=== PATIENT | female | born 1965 | race American Indian/Alaskan Native ===

== ENCOUNTER 2017-10-30 08:36 | Day surgery (SDC) | payer BC, OTHER ==
[~2017-10-30 08:36] MED LIST: Acetaminophen/HYDROcodone 325-5 MG Tab PO PRN; Clindamycin Phosphate in D5W 600 MG in Premix Bag 1 BAG IV SCH; Lactated Ringers 1,000 ML IV SCH
--- NOTE | 2017-10-30 09:29 | PCM.PREANE ---
Preanesthetic Assessment - Anesthesia/Transfusion/Family Hx Anesthesia History: Prior Anesthesia Without Reaction Family History of Anesthesia Reaction: No Transfusion History: No Prior Transfusion(s) - Review of Systems General: No Symptoms Pulmonary: No Symptoms Cardiovascular: No Symptoms Gastrointestinal: No Symptoms Neurological: No Symptoms Other: Reports: None - Physical Assessment NPO Status Date: 10/29/17 Height: 1.65 m Weight: 72.575 kg ASA Class: 2 Mental Status: Alert & Oriented x3 Airway Class: Mallampati = 1 Dentition: Reports: Partial ROM/Head Extension: Full Lungs: Clear to Auscultation, Normal Respiratory Effort Cardiovascular: Regular Rate, Regular Rhythm - Allergies Allergies/Adverse Reactions: Allergies Allergy/AdvReac Type Severity Reaction Status Date / Time cefuroxime axetil Allergy Hives Verified 10/24/17 14:59 [From Ceftin] codeine Allergy Airway Verified 10/24/17 14:59 Tightness Penicillins Allergy Hives Verified 10/24/17 14:59 propoxyphene [From Darvon] Allergy Hives Verified 10/24/17 14:59 - Anesthesia Plan Pre-Op Medication Ordered: None - Acknowledgements Anesthesia Type Planned: General Anesthesia Pt an Appropriate Candidate for the Planned Anesthesia: Yes Alternatives and Risks of Anesthesia Discussed w Pt/Guardian: Yes Pt/Guardian Understands and Agrees with Anesthesia Plan: Yes Additional Comments: PMH: RA. HTN, HLD, smoker PreAnesthesia Questionnaire - Past Health History Medical/Surgical History: Denies Medical/Surgical History (RA) HEENT History: Reports: Other (See Below) Other HEENT History: top and bottom denture Cardiovascular History: Reports: High Cholesterol, Hypertension Respiratory History: Reports: None Gastrointestinal History: Reports: Cholelithiasis, GERD Genitourinary History: Reports: None [employer] History: Reports: Musculoskeletal History: Reports: Fracture, Osteoarthritis, RA Other Musculoskeletal History: hx fx back Neurological History: Reports: None Psychiatric History: Reports: None Endocrine/Metabolic History: Reports: None Hematologic History: Reports: None Immunologic History: Reports: None Oncologic (Cancer) History: Reports: None Dermatologic History: Reports: None - Infectious Disease History Infectious Disease History: Reports: Chicken Pox - Past Surgical History Head Surgeries/Procedures: Reports: None HEENT Surgical History: Reports: Cataract Surgery, Tonsillectomy GI Surgical History: Reports: Cholecystectomy Female Surgical History: Reports: Tubal Ligation - SUBSTANCE USE Smoking Status *Q: Current Every Day Smoker Tobacco Use Within Last Twelve Months: Cigarettes Recreational Drug Use History: No - HOME MEDS Home Medications: Home Meds Aspirin [Halfprin] 81 mg PO DAILY 12/01/15 [History] Folic Acid 1 mg PO DAILY 12/01/15 [History] Methotrexate Sodium [Methotrexate] 2.5 mg PO ASDIRECTED 12/01/15 [History] Hydrochlorothiazide [Hydrochlorothiazide] 1 tab PO DAILY 03/17/16 [History] Cholecalciferol (Vitamin D3) [Vitamin D] 1,000 units PO DAILY 10/24/17 [History] Naproxen 1 tab PO ASDIRECTED PRN 10/24/17 [History] Simvastatin [Zocor] 20 mg PO DAILY 10/24/17 [History] - CURRENT (IN HOUSE) MEDS Current Meds: Current Medications Hydrocodone Bitart/Acetaminophen ([place] 325-5 Mg) 1 - 2 tab PO Q4H PRN PRN Reason: Pain Clindamycin Phosphate 600 mg/ (Premix) 50 mls @ 100 mls/hr IV ONCALL INA Lactated Ringer's (Ringers, Lactated) 1,000 mls @ 100 mls/hr IV ASDIRECTED [facility]
[2017-10-30] MEDS ORDERED: Lidocaine 2% 5 ML SDV ONE (09:44)
[2017-10-30] MEDS ORDERED: fentaNYL 100 MCG/2 ML SDV ONE (09:45)
[2017-10-30] MEDS ORDERED: Propofol 200 MG/20 ML SDV ONE (09:45)
[2017-10-30] MEDS ORDERED: Midazolam 1 MG/ML 2 ML SDV ONE ×2 (09:45→09:54)
[2017-10-30] MEDS ORDERED: Lidocaine 1% 20 ML MDV ONE (10:24)
[2017-10-30] MEDS ORDERED: fentaNYL 100 MCG/2 ML SDV IVPUSH PRN (11:29)
--- NOTE | 2017-10-30 11:30 | PCM.OPNOTE ---
- General Post-Op/Procedure Note Date of Surgery/Procedure: 10/30/17 Operative Procedure(s): L knee scope with chondroplasty lateral femoral condyle Post-Op Diagnosis: DJD left knee Anesthesia Technique: General LMA Primary Surgeon: Angely Batista Pack Out Operator: Latoya Cerrato in mLs: 10 Condition: Good Free Text/Narrative:: #[id number] tt=15 min
[2017-10-30] MEDS ORDERED: ePHEDrine 50 MG/ML SDV ONE (11:32)
[2017-10-30 13:07] VITALS: BP 110/62
--- NOTE | 2017-10-30 14:22 | PCM.POSTAN ---
POST ANESTHESIA ASSESSMENT - MENTAL STATUS Mental Status: Alert, Oriented - RESPIRATORY Respiratory Status: Respiratory Rate WNL, Airway Patent, O2 Saturation Stable - CARDIOVASCULAR CV Status: Pulse Rate WNL, Blood Pressure Stable - GASTROINTESTINAL GI Status: No Symptoms - PAIN Pain Score: 0 - POST OP HYDRATION Hydration Status: Adequate & Stable
--- NOTE | 2017-10-30 15:12 | PCM48HPAN ---
Post Anesthesia Note - EVALUATION WITHIN 48HRS OF ANESTHETIC Vital Signs in Normal Range: Yes Patient Participated in Evaluation: Yes Respiratory Function Stable: Yes Airway Patent: Yes Cardiovascular Function Stable: Yes Hydration Status Stable: Yes Pain Control Satisfactory: Yes Nausea and Vomiting Control Satisfactory: Yes Mental Status Recovered: Yes
--- NOTE | 2017-10-30 19:02 | OR ---
SURGEON: Angely Batista MD DATE OF PROCEDURE: 10/30/2017 PREOPERATIVE DIAGNOSIS: Right knee pain. POSTOPERATIVE DIAGNOSIS: Degenerative joint disease, right knee. PROCEDURES: Right knee arthroscopy with chondroplasty of the lateral femoral condyle. TOOL AND DIE REPAIRER: Latoya Cerrato PA-C. ANESTHESIA: General. ESTIMATED BLOOD LOSS: 10 mL. TOURNIQUET TIME: See operative record. COMPLICATIONS: None. IMPLANTS USED: None. DVT PROPHYLAXIS: Not indicated. BRIEF HISTORY: Priyanka is a 52-year-old female, who has had complaint of progressive right knee pain. She had failed conservative treatment. Due to her lack of response to conservative treatment, I did recommend surgical intervention. The risks and goals of procedure were discussed with the patient and were documented preoperatively. She agreed to proceed. DESCRIPTION OF PROCEDURE: The patient was properly identified and brought to the operating room. She was transferred from the OR cart and placed on the operating room table in supine position. General anesthesia was administered. After adequate anesthesia was obtained, a well-padded tourniquet was applied to the right lower extremity. The right lower extremity was then prepped in standard fashion using ChloraPrep solution. It was then sterilely draped. A time-out was performed to ensure correct site and procedure. Preoperative antibiotics were given. The surgical site had been marked preoperatively. An Esmarch was used to exsanguinate the right lower extremity and the tourniquet was inflated to 250 mmHg. A lateral portal arthrotomy was established. Blunt trocar and cannula were introduced into the suprapatellar space. Camera, inflow, and outflow were assembled. No significant synovitis was noted. The patellofemoral joint was visualized. The patella appeared to track centrally. I then extended down the lateral and medial gutter. No loose bodies were identified. I then entered the medial compartment. A medial portal arthrotomy was established. A blunt probe was inserted. The meniscus was extensively probed. I did not appreciate any evidence of instability or tearing. The joint surfaces also showed minimal degenerative changes consistent with grade 1 chondromalacia. I then entered the notch. Both the ACL and PCL were visualized and probed and found to be intact. I then entered the lateral compartment. An area of full thickness cartilage loss was noted along the medial aspect of the lateral femoral condyle. This was probed and found to be unstable. A shaver was used to resect this back to a stable remnant. She had an area measuring approximately 5 mm x 5 mm along the anterior medial aspect of the lateral tibial plateau that was completely devoid of overlying cartilage. The remainder of the cartilage surfaces appeared intact. Meniscus was also extensively probed and found to be stable. I then re-entered the patellofemoral joint. The undersurface of the patella was inspected. She had some stellate fissures within the inferior portion of the patella. A shaver was used to gently roughen this. There was still good overlying cartilage and this did not appear to be full-thickness. The trochlear groove did not show significant degenerative findings. Instruments were then removed from the knee. The portal sites were closed with 3-0 nylon. Lidocaine 1% was injected along the portal tracts. Xeroform gauze was placed over the wound and a bulky dressing was applied. The tourniquet was then deflated. She was awakened from her anesthetic and transferred back to the operating room cart. She was brought to recovery room in stable condition. All needle and sponge counts were correct. ILANA / ZEYNEP /[id number] MTDD
== END 2017-10-30 13:00 | disposition home or self-care (01) ==
LOC: MW.SDS 08:36
PROVIDERS: ATTEND Orthopaedic Surgery
DX: M17.11 Unilateral primary osteoarthritis, right knee (principal); M94.261 Chondromalacia, right knee; E78.00 Pure hypercholesterolemia, unspecified; I10 Essential (primary) hypertension; K21.9 Gastro-esophageal reflux disease without esophagitis; F17.210 Nicotine dependence, cigarettes, uncomplicated; Z88.1 Allergy status to other antibiotic agents; Z88.0 Allergy status to penicillin; Z88.8 Allergy status to other drugs, medicaments and biological substances; Z79.82 Long term (current) use of aspirin; Z79.899 Other long term (current) drug therapy; Z90.49 Acquired absence of other specified parts of digestive tract; Z98.51 Tubal ligation status; Z88.5 Allergy status to narcotic agent; Z90.89 Acquired absence of other organs
CPT/HCPCS: 29999; J2250; J3010; J7120; 01400; 88304; J2704

== ENCOUNTER 2019-01-07 07:16 | Day surgery (SDC) | payer BC, OTHER ==
[~2019-01-07 07:16] MED LIST changes: -Acetaminophen/HYDROcodone 325-5 MG Tab PO PRN; -Clindamycin Phosphate in D5W 600 MG in Premix Bag 1 BAG IV SCH
[2019-01-07] MEDS ORDERED: Lidocaine 1% 20 ML MDV ONE (07:38)
[2019-01-07] MEDS ORDERED: Propofol 200 MG/20 ML SDV ONE (07:42)
[2019-01-07] MEDS ORDERED: fentaNYL 100 MCG/2 ML SDV ONE (07:42)
[2019-01-07] MEDS ORDERED: Ondansetron 4 MG/2 ML SDV ONE (07:42)
[2019-01-07] MEDS ORDERED: Midazolam 1 MG/ML 2 ML SDV ONE (07:42)
[2019-01-07] MEDS ORDERED: Lidocaine 2% 5 ML SDV ONE (07:42)
--- NOTE | 2019-01-07 07:57 | PCM.PREANE ---
Preanesthetic Assessment - Anesthesia/Transfusion/Family Hx Anesthesia History: Prior Anesthesia Without Reaction Family History of Anesthesia Reaction: No Transfusion History: No Prior Transfusion(s) - Review of Systems General: No Symptoms Pulmonary: No Symptoms Cardiovascular: No Symptoms Gastrointestinal: No Symptoms Neurological: No Symptoms Other: Reports: None - Physical Assessment NPO Status Date: 01/06/19 Height: 5 ft 6 in Weight: 68.039 kg ASA Class: 2 Mental Status: Alert & Oriented x3 Airway Class: Mallampati = 2 Dentition: Reports: Normal Dentition ROM/Head Extension: Full Lungs: Clear to Auscultation, Normal Respiratory Effort Cardiovascular: Regular Rate, Regular Rhythm - Allergies Allergies/Adverse Reactions: Allergies Allergy/AdvReac Type Severity Reaction Status Date / Time cefuroxime axetil Allergy Hives Verified 01/02/19 15:57 [From Ceftin] codeine Allergy Airway Verified 01/02/19 15:57 Tightness Penicillins Allergy Hives Verified 01/02/19 15:57 pineapple Allergy Hives Verified 01/02/19 15:57 propoxyphene [From Darvon] Allergy Airway Verified 01/02/19 15:57 Tightness - Blood Blood Available: No - Anesthesia Plan Pre-Op Medication Ordered: None - Acknowledgements Anesthesia Type Planned: General Anesthesia Pt an Appropriate Candidate for the Planned Anesthesia: Yes Alternatives and Risks of Anesthesia Discussed w Pt/Guardian: Yes Pt/Guardian Understands and Agrees with Anesthesia Plan: Yes Additional Comments: PMH: htn, hld, smoker PLAN: ga/lma PreAnesthesia Questionnaire - Past Health History Medical/Surgical History: Denies Medical/Surgical History (RA) HEENT History: Reports: Cataract, Macular Degeneration, Other (See Below) Other HEENT History: uses reading glasses,, has upper and lower partial removable dentures Cardiovascular History: Reports: High Cholesterol, Hypertension Respiratory History: Reports: None Gastrointestinal History: Reports: Cholelithiasis, GERD Genitourinary History: Reports: 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: Musculoskeletal History: Reports: Fracture, Osteoarthritis, Osteoporosis Other Musculoskeletal History: hx of fx back and ribs Neurological History: Reports: None Psychiatric History: Reports: None Endocrine/Metabolic History: Reports: None Hematologic History: Reports: None Immunologic History: Reports: None Oncologic (Cancer) History: Reports: None Dermatologic History: Reports: None - Infectious Disease History Infectious Disease History: Reports: Chicken Pox - Past Surgical History HEENT Surgical History: Reports: Cataract Surgery, Tonsillectomy GI Surgical History: Reports: Cholecystectomy Female Surgical History: Reports: Tubal Ligation Musculoskeletal Surgical History: Reports: Arthroscopic Knee - SUBSTANCE USE Smoking Status *Q: Current Every Day Smoker Tobacco Use Within Last Twelve Months: Cigarettes Recreational Drug Use History: No - HOME MEDS Home Medications: Home Meds Aspirin [Halfprin] 81 mg PO DAILY 12/01/15 [History] Hydrochlorothiazide 1 tab PO DAILY 03/17/16 [History] Simvastatin [Zocor] 20 mg PO DAILY 10/24/17 [History] - CURRENT (IN HOUSE) MEDS Current Meds: Current Medications Hydrocodone Bitart/Acetaminophen ([place] 325-5 Mg) 1 - 2 tab PO Q4H PRN PRN Reason: Pain Clindamycin Phosphate 600 mg/ (Premix) 50 mls @ 100 mls/hr IV ONCALL INA Lactated Ringer's (Ringers, Lactated) 1,000 mls @ 100 mls/hr IV ASDIRECTED REPLACED BY [facility] Discontinued Medications Fentanyl (Sublimaze) Confirm Administered Dose 100 mcg .ROUTE .STK-MED ONE Stop: 01/07/19 07:43 Lidocaine HCl (Xylocaine-Mpf 1%) Confirm Administered Dose 5 mls @ as directed .ROUTE .STK-MED ONE Stop: 01/07/19 07:45 Lidocaine (Xylocaine-Mpf 2%) Confirm Administered Dose 5 ml .ROUTE .STK-MED ONE Stop: 01/07/19 07:43 Lidocaine HCl (Xylocaine 1%) Confirm Administered Dose 20 ml .ROUTE .STK-MED ONE Stop: 01/07/19 07:39 Midazolam HCl (Versed 1 Mg/Ml) Confirm Administered Dose 2 mg .ROUTE .STK-MED ONE Stop: 01/07/19 07:43 Ondansetron HCl (Zofran) Confirm Administered Dose 4 mg .ROUTE .STK-MED ONE Stop: 01/07/19 07:43 Propofol (Diprivan 20 Ml) Confirm Administered Dose 200 mg .ROUTE .STK-MED ONE Stop: 01/07/19 07:43
[2019-01-07] MEDS ORDERED: Acetaminophen/HYDROcodone 325-5 MG Tab PO PRN (08:00)
[2019-01-07] MEDS ORDERED: Clindamycin Phosphate in D5W 600 MG in Premix Bag 50 BAG IV SCH ×2 (08:00)
[2019-01-07] MEDS ORDERED: Ketorolac 30 MG/ML SDV ONE (11:20)
--- NOTE | 2019-01-07 11:30 | PCM.OPNOTE ---
- General Post-Op/Procedure Note Date of Surgery/Procedure: 01/07/19 Operative Procedure(s): Right knee arthroscopy with chondroplasty of the patella and lateral tibia plateau Post-Op Diagnosis: DJD right knee Anesthesia Technique: General LMA Primary Surgeon: Angely Batista Neon Sign Maker: Latoya Cerrato in mLs: 5 Condition: Good Free Text/Narrative:: tt=12 minutes #[id number]
[2019-01-07] MEDS ORDERED: 50% Dextrose in Water 50 ML Syringe IVPUSH PRN (11:45)
[2019-01-07] MEDS ORDERED: EPINEPHrine 1:10,000 1 MG/10 ML Syringe IVPUSH PRN (11:45)
[2019-01-07] MEDS ORDERED: Naloxone 0.4 MG/ML Syringe IVPUSH PRN (11:45)
[2019-01-07] MEDS ORDERED: fentaNYL 100 MCG/2 ML SDV IVPUSH PRN (11:45)
--- NOTE | 2019-01-07 12:37 | PCM.POSTAN ---
POST ANESTHESIA ASSESSMENT - MENTAL STATUS Mental Status: Alert, Oriented - RESPIRATORY Respiratory Status: Respiratory Rate WNL, Airway Patent, O2 Saturation Stable - CARDIOVASCULAR CV Status: Pulse Rate WNL, Blood Pressure Stable - GASTROINTESTINAL GI Status: No Symptoms - POST OP HYDRATION Hydration Status: Adequate & Stable
--- NOTE | 2019-01-07 12:37 | PCM48HPAN ---
Post Anesthesia Note - EVALUATION WITHIN 48HRS OF ANESTHETIC Vital Signs in Normal Range: Yes Patient Participated in Evaluation: Yes Respiratory Function Stable: Yes Airway Patent: Yes Cardiovascular Function Stable: Yes Hydration Status Stable: Yes Pain Control Satisfactory: Yes Nausea and Vomiting Control Satisfactory: Yes Mental Status Recovered: Yes Resp Rate: 16
[2019-01-07 13:46] VITALS: BP 116/63
--- NOTE | 2019-01-07 17:55 | OR ---
SURGEON: Angely Batista MD DATE OF PROCEDURE: 01/07/2019 PREOPERATIVE DIAGNOSIS: Right knee pain. POSTOPERATIVE DIAGNOSIS: Degenerative joint disease, right knee. PROCEDURE: Right knee arthroscopy with chondroplasty of the patella and lateral tibial plateau. DIAL PAINTER: Latoya Cerrato PA-C. ANESTHESIA: General. ESTIMATED BLOOD LOSS: 5 mL. TOURNIQUET TIME: 10 minutes. COMPLICATIONS: None. DVT PROPHYLAXIS: Not indicated. IMPLANTS USED: None. BRIEF HISTORY: Priyanka is a 53-year-old female who has had complaint of progressive right knee pain following a fall. She has previously undergone a knee arthroscopy and has done well. Due to her lack of response to conservative treatment, I did recommend surgical intervention. The risks and goals of procedure were discussed with the patient and were documented preoperatively. She agreed to proceed. DESCRIPTION OF PROCEDURE: The patient was properly identified and brought to the operating room. She was transferred from the OR cart and placed on the operating table in supine position. General anesthesia was administered. After adequate anesthesia was obtained, a well-padded tourniquet was applied to the right lower extremity. The right lower extremity was then prepped in standard fashion using ChloraPrep solution. It was then sterilely draped. A time-out was performed to ensure correct site and procedure. Preoperative antibiotics were given. The surgical site had been marked preoperatively. An Esmarch was used to exsanguinate the right lower extremity and the tourniquet was inflated to 250 mmHg. A lateral portal arthrotomy was made over the site of the previous incision. Blunt trocar and cannula were introduced into the suprapatellar pouch. Camera, inflow, and outflow were assembled. No significant synovitis was noted in the suprapatellar pouch. The patellofemoral joint was then visualized. The patella appeared to track centrally. I then extended down the lateral and medial gutter. No loose bodies were identified. I then entered the medial compartment. A medial portal arthrotomy was established to the site of the previous incision. A blunt probe was inserted. The meniscus was extensively probed. No tearing or instability was noted. The joint surface showed minor grade 1 chondromalacia only. I then entered the notch. Both the ACL and PCL were visualized and probed and found to be intact. I then entered the lateral compartment. The meniscus was extensively probed and found to be stable. She had an area measuring approximately 5 mm x 10 mm over the anterior aspect of the lateral tibial plateau that was completely devoid of cartilage. Some loose cartilage fragments remained. A shaver was used to perform a chondroplasty of the lateral tibial plateau. It was again probed and no further loose fragments were noted. The lateral femoral condyle showed evidence of grade 2 chondromalacia. I then re-entered the patellofemoral joint. The probe was used to examine the undersurface of the patella. She had deep fissures present within the cartilage on the patella. These appeared to be full thickness. She had a small area along the inferior portion of the patella, which did show some instability of the cartilage. I did use a shaver to roughen this area to hopefully stimulate some bleeding. There was no full-thickness cartilage loss noted. The trochlear groove showed minor grade 1 to grade 2 chondromalacia only. The instruments were then removed from the knee. The portal sites were closed with 3-0 nylon. 1% Lidocaine was injected along the portal tracts. Xeroform gauze was placed over the wound and a bulky dressing was applied. The tourniquet was then deflated. She was awakened from her anesthetic and transferred back to the operating room cart. She was brought to recovery room in stable condition. All needle and sponge counts were correct. ILANA / ZEYNEP /[id number]
== END 2019-01-07 13:00 | disposition home or self-care (01) ==
LOC: MW.SDS 07:16
PROVIDERS: ATTEND Orthopaedic Surgery
DX: M17.11 Unilateral primary osteoarthritis, right knee (principal); M94.261 Chondromalacia, right knee; M65.861 Other synovitis and tenosynovitis, right lower leg; I10 Essential (primary) hypertension; E78.00 Pure hypercholesterolemia, unspecified; M81.0 Age-related osteoporosis without current pathological fracture; F17.210 Nicotine dependence, cigarettes, uncomplicated; E78.5 Hyperlipidemia, unspecified; Z79.82 Long term (current) use of aspirin; Z79.899 Other long term (current) drug therapy
CPT/HCPCS: 29877; J1885; J2001; J2250; J2405; J2704; J3010; J3490; J7120

== ENCOUNTER 2019-04-22 12:09 | Emergency (ER) | payer BC, OTHER ==
[2019-04-22] MEDS ORDERED: Aspirin 81 MG Tab.Chew PO ONE (12:20)
[2019-04-22] MEDS ORDERED: Sodium Chloride 0.9% 1,000 ML IV ONE (12:20)
[2019-04-22] MEDS ORDERED: Ondansetron 4 MG/2 ML SDV IVPUSH ONE (12:21)
--- NOTE | 2019-04-22 12:22 | EDM.PDOC ---
ED HPI GENERAL MEDICAL PROBLEM - General Chief Complaint: Chest Pain Stated Complaint: CHEST PAIN Time Seen by Provider: 04/22/19 12:22 Source of Information: Reports: Patient - History of Present Illness INITIAL COMMENTS - FREE TEXT/NARRATIVE: HISTORY AND PHYSICAL: History of present illness: [Patient presents with epigastric pain which began at 2 AM after an episode of vomiting and regurgitation, she arrives in no distress no diaphoresis or shortness of breath no radiation arm neck or jaw with pain she does describe some tingling on arrival in her left hand no fever no current vomiting chills or sweats no actual chest pain headache dizziness or palpitation no bowel or urine symptoms I did provide GI cocktail which improved symptoms she had some decreased breath sounds on the right chest which cleared post DuoNeb Patient has history of acid reflux ] Review of systems: As per history of present illness and below otherwise all systems reviewed and negative. Past medical history: As per history of present illness and as reviewed below otherwise noncontributory. Surgical history: As per history of present illness and as reviewed below otherwise noncontributory. Social history: No reported history of drug or alcohol abuse. Family history: As per history of present illness and as reviewed below otherwise noncontributory. Physical exam: HEENT: Atraumatic, normocephalic, pupils reactive, negative for conjunctival pallor or scleral icterus, mucous membranes moist, throat clear, neck supple, nontender, trachea midline. Lungs: Clear to auscultation, breath sounds equal bilaterally, chest nontender. Heart: S1S2, regular, negative for clicks, rubs, or JVD. Abdomen: Soft, nondistended, nontender. Negative for masses or hepatosplenomegaly. Negative for costovertebral tenderness. Pelvis: Stable nontender. Genitourinary: Deferred. Rectal: Deferred. Extremities: Atraumatic, negative for cords or calf pain. Neurovascular unremarkable. Neuro: Awake, alert, oriented. Cranial nerves II through XII unremarkable. Cerebellum unremarkable. Motor and sensory unremarkable throughout. Exam nonfocal. Diagnostics: [CBC CMP UA troponin EKG Chest 1 view ] Therapeutics: [ GI cocktail and proton X improved symptoms DuoNeb Z-Sharif Prednisone HFA ] Impression: [ GERD-in terms resolved prior to discharge patient feeling much better and desires to leave we did offer observation admission Infiltrate on chest x-ray] Definitive disposition and diagnosis as appropriate pending reevaluation and review of above. left chest Pain Score (Numeric/FACES): 7 - Related Data Allergies Allergy/AdvReac Type Severity Reaction Status Date / Time cefuroxime axetil Allergy Hives Verified 04/22/19 12:17 [From Ceftin] codeine Allergy Airway Verified 04/22/19 12:17 Tightness Penicillins Allergy Hives Verified 04/22/19 12:17 pineapple Allergy Hives Verified 04/22/19 12:17 propoxyphene [From Darvon] Allergy Airway Verified 04/22/19 12:17 Tightness Home Meds: Home Meds Aspirin [Halfprin] 81 mg PO DAILY 12/01/15 [History] Hydrochlorothiazide 1 tab PO DAILY 03/17/16 [History] Metoprolol Succinate [Toprol XL] 1 tab PO DAILY 04/22/19 [History] Past Medical History - Past Health History Medical/Surgical History: Denies Medical/Surgical History HEENT History: Reports: Cataract, Macular Degeneration, Other (See Below) Other HEENT History: uses reading glasses,, has upper and lower partial removable dentures Cardiovascular History: Reports: High Cholesterol, Hypertension Respiratory History: Reports: None Gastrointestinal History: Reports: Cholelithiasis, GERD Genitourinary History: Reports: None 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: Musculoskeletal History: Reports: Fracture, Osteoarthritis, Osteoporosis Other Musculoskeletal History: hx of fx back and ribs Neurological History: Reports: None Psychiatric History: Reports: None Endocrine/Metabolic History: Reports: None Hematologic History: Reports: None Immunologic History: Reports: None Oncologic (Cancer) History: Reports: None Dermatologic History: Reports: None - Infectious Disease History Infectious Disease History: Reports: Chicken Pox - Past Surgical History Head Surgeries/Procedures: Reports: None HEENT Surgical History: Reports: Cataract Surgery, Tonsillectomy GI Surgical History: Reports: Cholecystectomy Female Surgical History: Reports: Tubal Ligation Musculoskeletal Surgical History: Reports: Arthroscopic Knee Social & Family History - Family History Family Medical History: Noncontributory HEENT: Reports: Other (See Below) - Tobacco Use Smoking Status *Q: Current Every Day Smoker Years of Tobacco use: 20 Packs/Tins Daily: 1 - Recreational Drug Use Recreational Drug Use: No ED ROS GENERAL - Review of Systems Review Of Systems: See Below ED EXAM, GENERAL - Physical Exam Exam: See Below Course - Vital Signs Last Recorded V/S: Last Vital Signs Temp 97.6 F 04/22/19 12:12 Pulse 83 04/22/19 13:35 Resp 16 04/22/19 13:35 BP 137/86 04/22/19 13:35 Pulse Ox 97 04/22/19 13:35 - Orders/Labs/Meds Orders: Active Orders 24 hr Category Date Time Status EKG Documentation Completion [RC] STAT Care 04/22/19 12:20 Active RT Aerosol Therapy [RC] ASDIRECTED Care 04/22/19 14:15 Active B-TYPE NATRIURETIC PEPTIDE,BNP [CHEM] Stat Lab 04/22/19 12:15 Received UA RFX TRAVIS AND CULT IF INDIC [URIN] Stat Lab 04/22/19 12:20 Ordered Labs: Laboratory Tests 04/22/19 04/22/19 Range/Units 12:15 12:15 WBC 13.57 H (4.0-11.0) K/uL RBC 5.27 (4.30-5.90) M/uL Hgb 15.1 (12.0-16.0) g/dL Hct 44.3 (36.0-46.0) % MCV 84.1 (80.0-98.0) fL MCH 28.7 (27.0-32.0) pg MCHC 34.1 (31.0-37.0) g/dL RDW Std Deviation 40.4 (28.0-62.0) fl RDW Coeff of Va 13 (11.0-15.0) % Plt Count 363 (150-400) K/uL MPV 10.30 (7.40-12.00) fL Neut % (Auto) 66.6 (48.0-80.0) % Lymph % (Auto) 23.9 (16.0-40.0) % Charles % (Auto) 6.3 (0.0-15.0) % Eos % (Auto) 3.1 (0.0-7.0) % Baso % (Auto) 0.1 (0.0-1.5) % Neut # (Auto) 9.0 H (1.4-5.7) K/uL Lymph # (Auto) 3.3 H (0.6-2.4) K/uL Charles # (Auto) 0.9 H (0.0-0.8) K/uL Eos # (Auto) 0.4 (0.0-0.7) K/uL Baso # (Auto) 0.0 (0.0-0.1) K/uL Nucleated RBC % 0.0 /100WBC Nucleated RBCs # 0 K/uL Sodium 139 (136-145) mmol/L Potassium 3.7 (3.5-5.1) mmol/L Chloride 105 (98-107) mmol/L Carbon Dioxide 23.5 (21.0-32.0) mmol/L BUN 14 (7.0-18.0) mg/dL Creatinine 0.7 (0.6-1.0) mg/dL Est Cr Clr Drug Dosing 86.01 mL/min Estimated GFR (MDRD) > 60.0 ml/min Glucose 102 (74-106) mg/dL Calcium 9.2 (8.5-10.1) mg/dL Total Bilirubin 0.4 (0.2-1.0) mg/dL AST 20 (15-37) IU/L ALT 27 (14-63) IU/L Alkaline Phosphatase 81 (46-116) U/L Troponin I < 0.050 (0.000-0.056) ng/mL Total Protein 8.4 H (6.4-8.2) g/dL Albumin 4.0 (3.4-5.0) g/dL Globulin 4.4 H (2.6-4.0) g/dL Albumin/Globulin Ratio 0.9 (0.9-1.6) Lipase 82 (73-393) U/L Meds: Medications Discontinued Medications Generic Name Dose Route Start Last Admin Trade Name Freq PRN Reason Stop Dose Admin Albuterol/Ipratropium 3 ml 04/22/19 14:15 04/22/19 14:25 Duoneb 3.0-0.5 Mg/3 Ml NEB 04/22/19 14:16 3 ml ONETIME ONE Administration Aspirin 324 mg 04/22/19 12:20 04/22/19 12:27 Aspirin PO 04/22/19 12:21 324 mg ONETIME ONE Administration Al Hydroxide/Mg Hydroxide 15 0 ml 04/22/19 12:46 04/22/19 13:27 ml/ Metoclopramide HCl 5 mg/ PO 04/22/19 12:47 1 each Lidocaine HCl 5 ml ONETIME ONE Administration Sodium Chloride 1,000 mls @ 999 mls/hr 04/22/19 12:20 04/22/19 12:26 Normal Saline IV 04/22/19 13:20 999 mls/hr STAT ONE Administration Sodium Chloride Confirm 04/22/19 13:16 04/22/19 13:28 Normal Saline Administered 04/22/19 13:17 Not Given Dose 20 mls @ as directed .ROUTE .STK-MED ONE Ondansetron HCl 8 mg 04/22/19 12:21 04/22/19 12:27 Zofran IVPUSH 04/22/19 12:22 8 mg ONETIME ONE Administration Pantoprazole Sodium 80 mg 04/22/19 12:46 04/22/19 13:29 Protonix Iv IVPUSH 04/22/19 12:47 80 mg .BOLUS ONE Administration Departure - Departure Time of Disposition: 15:06 Disposition: Home, Self-Care 01 Condition: Good Clinical Impression: Pulmonary infiltrate on chest x-ray, GERD (gastroesophageal reflux disease) - Discharge Information Referrals: PCP,Unknown [Primary Care Provider] - Forms: ED Department Discharge Additional Instructions: Medication as prescribed Prilosec [id number] 40 mg by mouth daily Follow-up with primary care in 7-10 days for recheck with Dr. Avendano The following information is given to patients seen in the emergency department who are being discharged to home. This information is to outline your options for follow-up care. We provide all patients seen in our emergency department with a follow-up referral. The need for follow-up, as well as the timing and circumstances, are variable depending upon the specifics of your emergency department visit. If you don't have a primary care physician on staff, we will provide you with a referral. We always advise you to contact your personal physician following an emergency department visit to inform them of the circumstance of the visit and for follow-up with them and/or the need for any referrals to a consulting specialist. The emergency department will also refer you to a specialist when appropriate. This referral assures that you have the opportunity for follow-up care with a specialist. All of these measure are taken in an effort to provide you with optimal care, which includes your follow-up. Under all circumstances we always encourage you to contact your private physician who remains a resource for coordinating your care. When calling for follow-up care, please make the office aware that this follow-up is from your recent emergency room visit. If for any reason you are refused follow-up, please contact the [facility] emergency department at and asked to speak to the emergency department charge nurse. - My Orders Last 24 Hours: My Active Orders 04/22/19 12:15 B-TYPE NATRIURETIC PEPTIDE,BNP [CHEM] Stat 04/22/19 12:20 EKG Documentation Completion [RC] STAT UA RFX TRAVIS AND CULT IF INDIC [URIN] Stat 04/22/19 14:15 RT Aerosol Therapy [RC] ASDIRECTED - Assessment/Plan Last 24 Hours: My Active Orders 04/22/19 12:15 B-TYPE NATRIURETIC PEPTIDE,BNP [CHEM] Stat 04/22/19 12:20 EKG Documentation Completion [RC] STAT UA RFX TRAVIS AND CULT IF INDIC [URIN] Stat 04/22/19 14:15 RT Aerosol Therapy [RC] ASDIRECTED
[2019-04-22] MEDS ORDERED: Pantoprazole 40 MG Vial IVPUSH ONE (12:46)
[2019-04-22] MEDS ORDERED: Alum Hydrox/Mag Hydrox/Simeth 15 ML, Metoclopramide 5 MG, Lidocaine 2% 5 ML PO ONE ×3 (12:46)
--- NOTE | 2019-04-22 13:11 | CR ---
EXAMINATION: Portable chest radiograph. HISTORY: Shortness of breath. FINDINGS: The trachea is midline. The cardiomediastinal silhouette is within normal limits. No pulmonary infiltrates, effusions or pneumothorax. Mild diffuse interstitial prominence. Osseous structures appear unremarkable. IMPRESSION: Mild diffuse interstitial prominence without focal consolidation.
[2019-04-22] MEDS ORDERED: Sodium Chloride 0.9% 20 ML ONE (13:16)
[2019-04-22 13:18] LABS: CHLORIDE,CL 105 mmol/L (98-107); SODIUM,NA 139 mmol/L (136-145)
[2019-04-22 13:36] VITALS: BP 137/86
[2019-04-22] MEDS ORDERED: Albuterol/Ipratropium 3.0-0.5 MG/3 ML Neb Soln NEB ONE (14:15)
== END 2019-04-22 15:22 | disposition home or self-care (01) ==
LOC: MW.ED 12:09
DX: K21.9 Gastro-esophageal reflux disease without esophagitis (principal); R91.8 Other nonspecific abnormal finding of lung field; E78.00 Pure hypercholesterolemia, unspecified; I10 Essential (primary) hypertension; F17.210 Nicotine dependence, cigarettes, uncomplicated; Z88.5 Allergy status to narcotic agent; Z88.0 Allergy status to penicillin; Z91.018 Allergy to other foods; Z79.82 Long term (current) use of aspirin; Z79.899 Other long term (current) drug therapy
CPT/HCPCS: 36415; 71045; 80053; 83690; 83880; 84484; 85025; 93005; 94640; 96361; 96374; 96375; 99285; A9270; C9113; J2405; J7040; 99284; J7620-GY

== ENCOUNTER 2022-09-13 12:51 | Emergency (ER) | payer BC, OTHER ==
[2022-09-13] MEDS ORDERED: Morphine 4 MG/ML Syringe IVPUSH STA (13:00)
[2022-09-13] MEDS ORDERED: Ondansetron 4 MG/2 ML SDV IVPUSH ONE (14:04)
[2022-09-13 15:28] VITALS: BP 124/64; PULSE 72
== END 2022-09-13 15:26 | disposition home or self-care (01) ==
LOC: MW.ED 12:51
DX: M48.56XA Collapsed vertebra, not elsewhere classified, lumbar region, initial encounter for fracture (principal); I10 Essential (primary) hypertension; Z88.1 Allergy status to other antibiotic agents; Z88.5 Allergy status to narcotic agent; Z88.0 Allergy status to penicillin; Z91.018 Allergy to other foods; Z79.82 Long term (current) use of aspirin; Z79.899 Other long term (current) drug therapy; Z90.49 Acquired absence of other specified parts of digestive tract
CPT/HCPCS: 72100; 93005; 96374; 96375; 99283; J2270; J2405

== ENCOUNTER 2024-11-18 17:13 | Emergency (ER) | payer BC, OTHER ==
[2024-11-18] MEDS ORDERED: Acetaminophen 500 MG Tab PO ONE (17:43)
[2024-11-18] MEDS: Acetaminophen 500 MG Tab PO ONE (18:23)
[2024-11-18] MEDS: Ibuprofen 600 MG Tab PO ONE (18:23)
[2024-11-18] MEDS: Ondansetron 4 MG Tab.DIS PO ONE (18:23)
[2024-11-18] MEDS: Acetaminophen/HYDROcodone 325-5 MG Tab PO ONE (18:23)
[2024-11-18 19:59] VITALS: BP 132/78; PULSE 82
== END 2024-11-18 19:59 | disposition home or self-care (01) ==
LOC: MW.ED 17:13
DX: S82.832A Other fracture of upper and lower end of left fibula, initial encounter for closed fracture (principal); I10 Essential (primary) hypertension; F17.210 Nicotine dependence, cigarettes, uncomplicated; Z90.49 Acquired absence of other specified parts of digestive tract; Z79.82 Long term (current) use of aspirin; Z79.899 Other long term (current) drug therapy; Z91.018 Allergy to other foods; Z88.8 Allergy status to other drugs, medicaments and biological substances; Z88.0 Allergy status to penicillin; Z88.6 Allergy status to analgesic agent; Z88.1 Allergy status to other antibiotic agents; W18.30XA Fall on same level, unspecified, initial encounter
CPT/HCPCS: 73552; 73590; 99283; A9270